=== PATIENT | female | born 1940 | race Two or more races ===

== ENCOUNTER 2018-03-16 09:37 | Inpatient (IN) | payer MEDICARE ==
[2018-03-15 13:19] LABS: BASOPHILS % (AUTO) 0.3 % (0-1); EOSINOPHILS % (AUTO) 0.4 % (0-6); HEMATOCRIT 41.3 % (35.0-45.0); HEMOGLOBIN 14.1 g/dl (12.0-16.0); LYMPHOCYTES # (AUTO) 2.5 X10'3 (1.1-4.8); LYMPHOCYTES % (AUTO) 34.5 % (21-51); MEAN CORPUSCULAR HEMOGLOBIN 31.5 PG (27.0-31.0); MEAN CORPUSCULAR HGB CONC 34.1 % (33.0-36.5); MEAN CORPUSCULAR VOLUME 92.5 FL (78-98); MEAN PLATELET VOLUME 8.4 FL (7.4-10.4); MONOCYTES # (AUTO) 0.6 X10'3 (0-0.9); MONOCYTES % (AUTO) 7.9 % (2-12); NEUTROPHILS # (AUTO) 4.2 X10'3 (1.8-7.7); NEUTROPHILS % (AUTO) 56.9 % (42-75); PLATELET COUNT 176 X10'3 (140-440); RED BLOOD COUNT 4.47 X10'6 (4.20-5.60); RED CELL DISTRIBUTION WIDTH 12.9 % (11.5-14.5); WHITE BLOOD COUNT 7.3 X10'3 (4.5-11.0)
[2018-03-15 13:30] LABS: ALBUMIN 2.9 G/DL (3.4-5.0); ANION GAP 7 (8-16); BLOOD UREA NITROGEN 14 MG/DL (7-18); BUN/CREATININE RATIO 13.9 (6.6-38.0); CALCIUM 9.9 MG/DL (8.5-10.1); CHLORIDE 105 MMOL/L (99-107); CREATININE 1.01 MG/DL (0.40-0.90); GLUCOSE 112 MG/DL (70-104); POTASSIUM 3.7 MMOL/L (3.5-5.1); SODIUM 141 MMOL/L (135-145); TOTAL CARBON DIOXIDE 29.4 MMOL/L (24-32); eGFR 53 ML/MIN
[2018-03-15 13:31] LABS: PARTIAL THROMBOPLASTIN TIME 26 SECONDS (22-32); PROTHROMBIN TIME 10.2 SECONDS (9.0-12.0)
[~2018-03-16] VITALS: Ht 162.6 cm; Wt 77.2 kg
[2018-03-16] VITALS (19 sets, daily range): BP systolic 114–184; BP diastolic 49–107
[2018-03-16] MEDS ORDERED: diphenhydrAMINE 25mg capsule PO PRN (09:55)
[2018-03-16] MEDS ORDERED: LORazepam 0.5 MG tablet PO PRN (09:55)
[2018-03-16] MEDS ORDERED: ACET-2119 PO (10:11)
[2018-03-16] MEDS ORDERED: DOCU-28 PO (10:11)
[2018-03-16] MEDS ORDERED: ATOR40TA3 PO (10:11)
[2018-03-16] MEDS ORDERED: OMEP40CA37 PO (10:11)
[2018-03-16] MEDS ORDERED: METO-467 PO (10:11)
[2018-03-16] MEDS ORDERED: APIX5TAB3 PO (10:11)
[2018-03-16] MEDS ORDERED: LIDOcaine/PRILOcaine 5gm cream TP ONE (11:45)
[2018-03-16] MEDS: normal saline 1000ml 1,000 ML IV SCH ×2 (11:57→23:00)
[2018-03-16] MEDS ORDERED: fentaNYL/PF 50MCG/1 ML 2ML syringe ONE (12:58)
[2018-03-16] MEDS ORDERED: nitroGLYCERIN-Tridil 50MG/D5W 250 ML IV ONE (12:58)
[2018-03-16] MEDS ORDERED: heparin 1,000unit/ml 10ml vial 10 ML ONE (12:58)
[2018-03-16] MEDS ORDERED: midazolam 2 mg/2 ml injection ONE (12:58)
[2018-03-16] MEDS ORDERED: lidocaine 1%/epinephrine 1:100,000 injection 50ml vial ONE (12:58)
[2018-03-16] MEDS ORDERED: iohexol 350 MG/ML 50ML vial IV ONE ×2 (12:59→13:56)
[2018-03-16] MEDS ORDERED: iohexol 350MG/ML 100ml bottle IV ONE (12:59)
[2018-03-16] MEDS ORDERED: verapamil 2.5 mg/ml inj IV ONE (13:29)
[2018-03-16] MEDS ORDERED: LIDOcaine 1% 30ml preserv. free vial ONE (13:35)
[2018-03-16] MEDS: acetaminophen 325mg tablet PO PRN (16:39)
[2018-03-16] MEDS ORDERED: potassium Cl 20 mEq SR tablet PO STA (16:55)
[2018-03-16] MEDS ORDERED: diltiazem 5mg/ml 5ml inj. IV ONE (16:55)
[2018-03-16] MEDS: magnesium 1gm/100ml D5W IVPB 100 ML IV SCH ×2 (17:21→19:27)
[2018-03-16] MEDS: atorvastatin 20mg tablet PO SCH (20:47)
[2018-03-16] MEDS: metoprolol tartrate 50mg tablet PO SCH (20:47)
[2018-03-16] MEDS ORDERED: potassium Cl 20 mEq SR tablet PO PRN ×2 (22:20→22:25)
[2018-03-16] MEDS ORDERED: magnesium Cl slow-release 64mg tablet PO PRN ×2 (22:20→22:35)
[2018-03-16] MEDS ORDERED: potassium Cl 40MEQ/NS 500ml 500 ML IV PRN ×2 (22:20)
[2018-03-16] MEDS ORDERED: magnesium 1gm/100ml D5W IVPB 100 ML IV PRN (22:20)
[2018-03-16] MEDS ORDERED: magnesium 4gm in 100ml NS 100 ML IV PRN (22:20)
[2018-03-16] MEDS: amiodarone 200mg tablet PO SCH (22:59)
[2018-03-17] VITALS (24 sets, daily range): BP systolic 105–168; BP diastolic 55–106
[2018-03-17 06:05] LABS: ALANINE AMINOTRANSFERASE 16 U/L (12-78); ALBUMIN 2.5 G/DL (3.4-5.0); ALBUMIN/GLOBULIN RATIO 0.7 (1.1-1.5); ALKALINE PHOSPHATASE 64 IU/L (46-116); ANION GAP 7 (8-16); ASPARTATE AMINO TRANSFERASE 17 U/L (10-37); BILIRUBIN,TOTAL 1.1 MG/DL (0.1-1.0); BLOOD UREA NITROGEN 12 MG/DL (7-18); BUN/CREATININE RATIO 14.1 (6.6-38.0); CALCIUM 8.7 MG/DL (8.5-10.1); CHLORIDE 104 MMOL/L (99-107); CREATININE 0.85 MG/DL (0.40-0.90); GLUCOSE 100 MG/DL (70-104); POTASSIUM 4.3 MMOL/L (3.5-5.1); SODIUM 138 MMOL/L (135-145); TOTAL CARBON DIOXIDE 26.6 MMOL/L (24-32); TOTAL PROTEIN 6.2 G/DL (6.4-8.2); eGFR 65 ML/MIN
[2018-03-17] MEDS ORDERED: fentaNYL/PF 50MCG/1 ML 2ML syringe IV ONE ×2 (06:35→06:39)
[2018-03-17] MEDS ORDERED: MIDAZolam 5mg/ml 2ml vial IV ONE (06:35)
[2018-03-17] MEDS ORDERED: AMIO400T5 PO (07:39)
[2018-03-17] MEDS ORDERED: iohexol 350MG/ML 100ml bottle IV ONE (07:51)
[2018-03-17] MEDS ORDERED: amiodarone 200mg tablet PO SCH ×2 (08:00→20:00)
[2018-03-17] MEDS: amiodarone 200mg tablet PO SCH (10:23)
[2018-03-17] MEDS: docusate sod 100mg capsule PO SCH (10:23)
[2018-03-17] MEDS: pantoprazole 40mg Tablet.DR PO SCH (10:23)
[2018-03-17] MEDS: metoprolol tartrate 50mg tablet PO SCH (10:27)
[2018-03-17] MEDS ORDERED: ondansetron/PF 4mg/2ml inj IV PRN (11:35)
[2018-03-17] MEDS ORDERED: ondansetron/PF 4mg/2ml inj ONE (11:35)
[2018-03-17] MEDS: acetaminophen 325mg tablet PO PRN (17:17)
[2018-03-17] MEDS ORDERED: metoprolol tartrate 25mg tablet PO SCH (20:00)
[2018-03-17] MEDS: atorvastatin 20mg tablet PO SCH (20:03)
[2018-03-18] VITALS: BP 133/69
[2018-03-18 03:00] VITALS: BP 135/75
[2018-03-18 06:08] LABS: ALBUMIN 2.5 G/DL (3.4-5.0); ANION GAP 6 (8-16); BLOOD UREA NITROGEN 9 MG/DL (7-18); BUN/CREATININE RATIO 10.6 (6.6-38.0); CALCIUM 9.1 MG/DL (8.5-10.1); CHLORIDE 105 MMOL/L (99-107); CREATININE 0.85 MG/DL (0.40-0.90); GLUCOSE 95 MG/DL (70-104); MAGNESIUM 1.8 MG/DL (1.5-2.4); POTASSIUM 3.8 MMOL/L (3.5-5.1); SODIUM 139 MMOL/L (135-145); TOTAL CARBON DIOXIDE 27.7 MMOL/L (24-32); eGFR 65 ML/MIN
[2018-03-18] MEDS ORDERED: AMIO200T40 PO (07:57)
[2018-03-18] MEDS ORDERED: METO-467 PO (07:57)
[2018-03-18] MEDS ORDERED: amiodarone 200mg tablet PO SCH (08:00)
[2018-03-18] MEDS ORDERED: metoprolol tartrate 25mg tablet PO SCH (08:05)
[2018-03-18] MEDS ORDERED: apixaban 5mg tablet PO SCH (08:05)
[2018-03-18] MEDS ORDERED: magnesium hydroxide 30ml (MOM) UD suspension PO ONE (08:40)
[2018-03-18] MEDS: docusate sod 100mg capsule PO SCH (09:00)
[2018-03-18] MEDS: pantoprazole 40mg Tablet.DR PO SCH (09:00)
== END 2018-03-18 13:38 | disposition home or self-care (01) | DRG 287 ==
LOC: SSTAY O 09:37 → PCU 3S 20:32
PROVIDERS: ADMIT Internal Medicine Cardiovascular Disease; ATTEND Internal Medicine Cardiovascular Disease
PROC: 4A023N7 Measurement of Cardiac Sampling and Pressure, Left Heart, Percutaneous Approach (ICD-10-PCS; principal; 2018-03-16)
PROC: B2111ZZ Fluoroscopy of Multiple Coronary Arteries using Low Osmolar Contrast (ICD-10-PCS; 2018-03-16)
PROC: B2151ZZ Fluoroscopy of Left Heart using Low Osmolar Contrast (ICD-10-PCS; 2018-03-16)
PROC: B246ZZ4 Ultrasonography of Right and Left Heart, Transesophageal (ICD-10-PCS; 2018-03-17)
PROC: B32T1ZZ Computerized Tomography (CT Scan) of Left Pulmonary Artery using Low Osmolar Contrast (ICD-10-PCS; 2018-03-17)
PROC: B3201ZZ Computerized Tomography (CT Scan) of Thoracic Aorta using Low Osmolar Contrast (ICD-10-PCS; 2018-03-17)
PROC: B32S1ZZ Computerized Tomography (CT Scan) of Right Pulmonary Artery using Low Osmolar Contrast (ICD-10-PCS; 2018-03-17)
DX: I25.10 Atherosclerotic heart disease of native coronary artery without angina pectoris (principal); I25.3 Aneurysm of heart; I47.2 Ventricular tachycardia; E78.5 Hyperlipidemia, unspecified; I10 Essential (primary) hypertension; I48.0 Paroxysmal atrial fibrillation; Z79.01 Long term (current) use of anticoagulants; Z79.899 Other long term (current) drug therapy; Z88.6 Allergy status to analgesic agent
CPT/HCPCS: 36415; 71275; 80048; 80053; 83735; 85025; 85610; 85730; 93005; 93306; 93312; 93458; 99152; 99153; A6257; A6449; C1750; C1769; J1644; J2250; J2405; J3010; J3490; J7030; Q0163; Q9967

== ENCOUNTER 2018-07-20 08:55 | Day surgery (SDC) | payer MEDICARE ==
[2018-07-19 11:15] LABS: BASOPHILS % (AUTO) 0.4 % (0-1); EOSINOPHILS % (AUTO) 0.2 % (0-6); HEMATOCRIT 37.9 % (35.0-45.0); HEMOGLOBIN 12.6 g/dl (12.0-16.0); LYMPHOCYTES # (AUTO) 1.8 X10'3 (1.1-4.8); LYMPHOCYTES % (AUTO) 37.1 % (21-51); MEAN CORPUSCULAR HEMOGLOBIN 30.2 PG (27.0-31.0); MEAN CORPUSCULAR HGB CONC 33.3 % (33.0-36.5); MEAN CORPUSCULAR VOLUME 90.8 FL (78-98); MEAN PLATELET VOLUME 8.8 FL (7.4-10.4); MONOCYTES # (AUTO) 0.6 X10'3 (0-0.9); MONOCYTES % (AUTO) 11.5 % (2-12); NEUTROPHILS # (AUTO) 2.5 X10'3 (1.8-7.7); NEUTROPHILS % (AUTO) 50.8 % (42-75); PLATELET COUNT 196 X10'3 (140-440); RED BLOOD COUNT 4.18 X10'6 (4.20-5.60); RED CELL DISTRIBUTION WIDTH 13.4 % (11.5-14.5)
[2018-07-19 11:29] LABS: ALBUMIN 2.7 G/DL (3.4-5.0); ANION GAP 8 (8-16); BLOOD UREA NITROGEN 17 MG/DL (7-18); BUN/CREATININE RATIO 18.9 (6.6-38.0); CALCIUM 9.4 MG/DL (8.5-10.1); CHLORIDE 105 MMOL/L (99-107); GLUCOSE 135 MG/DL (70-104); POTASSIUM 3.6 MMOL/L (3.5-5.1); SODIUM 141 MMOL/L (135-145); TOTAL CARBON DIOXIDE 28.3 MMOL/L (24-32); eGFR 60 ML/MIN
[2018-07-19 11:34] LABS: PARTIAL THROMBOPLASTIN TIME 25 SECONDS (22-32); PROTHROMBIN TIME 10.2 SECONDS (9.0-12.0)
[~2018-07-20] VITALS: Ht 162.6 cm; Wt 70.3 kg
[2018-07-20] VITALS (14 sets, daily range): BP systolic 114–171; BP diastolic 61–91
[~2018-07-20 08:55] MED LIST: ACET-2119 PO; AMIO200T40 PO; APIX5TAB3 PO; ATOR40TA3 PO; DOCU-28 PO; METO-467 PO; OMEP40CA37 PO
[2018-07-20] MEDS ORDERED: diphenhydrAMINE 25mg capsule PO PRN (09:25)
[2018-07-20] MEDS ORDERED: LORazepam 0.5 MG tablet PO PRN (09:25)
[2018-07-20] MEDS ORDERED: POTA10TA19 PO (10:05)
[2018-07-20] MEDS ORDERED: SOTA80TA73 PO (10:05)
[2018-07-20] MEDS ORDERED: FURO-149 PO (10:05)
[2018-07-20] MEDS ORDERED: LIDOcaine 1% (10mg/ml) 2ml vial ONE (10:13)
[2018-07-20] MEDS: normal saline 1000ml 1,000 ML IV SCH ×2 (10:16→19:25)
[2018-07-20] MEDS ORDERED: LIDOcaine 1% (10mg/ml)w/preservative injection 20ml MDV ONE (13:37)
[2018-07-20] MEDS ORDERED: iohexol 350 MG/ML 50ML vial IV ONE (13:37)
[2018-07-20] MEDS ORDERED: nitroGLYCERIN-Tridil 50MG/D5W 250 ML IV ONE (13:37)
[2018-07-20] MEDS ORDERED: heparin 1,000unit/ml 10ml vial 10 ML ONE (13:37)
[2018-07-20] MEDS ORDERED: iohexol 350MG/ML 100ml bottle IV ONE (13:37)
[2018-07-20] MEDS ORDERED: midazolam 2 mg/2 ml injection ONE (14:04)
[2018-07-20] MEDS ORDERED: iohexol 350 MG/1 ML 200ml bottle ONE (14:26)
[2018-07-20] MEDS ORDERED: heparin 25,000 UNIT/250ml bag 250 ML IV ONE (14:26)
[2018-07-20] MEDS ORDERED: clopidogrel 300mg tablet ONE (15:09)
[2018-07-20] MEDS ORDERED: magnesium hydroxide 30ml (MOM) UD suspension PO PRN (16:30)
[2018-07-20] MEDS ORDERED: cyclobenzaprine 10mg tablet PO PRN (16:30)
[2018-07-20] MEDS ORDERED: OXAZEpam 15mg capsule PO PRN (16:30)
[2018-07-20] MEDS ORDERED: nitroGLYCERIN-Tridil 50MG/D5W 250 ML IV SCH (16:30)
[2018-07-20] MEDS ORDERED: HYDROcodone/acetaminophen 10/325mg tab PO PRN ×2 (16:30)
[2018-07-20] MEDS ORDERED: proCHLORperazine 10 MG/2 ml inj IV PRN (16:30)
[2018-07-20] MEDS: aspirin 81mg tab.chew PO SCH (18:01)
[2018-07-20] MEDS: acetaminophen 325mg tablet PO PRN ×2 (18:03→23:49)
[2018-07-20] MEDS: docusate sod 100mg capsule PO SCH (20:00)
[2018-07-21] VITALS (7 sets, daily range): BP systolic 97–129; BP diastolic 59–76
[2018-07-21 06:10] LABS: ALANINE AMINOTRANSFERASE 13 U/L (12-78); ALBUMIN 2.5 G/DL (3.4-5.0); ALBUMIN/GLOBULIN RATIO 0.8 (1.1-1.5); ALKALINE PHOSPHATASE 70 IU/L (46-116); ANION GAP 9 (8-16); ASPARTATE AMINO TRANSFERASE 17 U/L (10-37); BILIRUBIN,TOTAL 0.8 MG/DL (0.1-1.0); BLOOD UREA NITROGEN 12 MG/DL (7-18); BUN/CREATININE RATIO 15.4 (6.6-38.0); CHLORIDE 104 MMOL/L (99-107); CREATININE 0.78 MG/DL (0.40-0.90); GLUCOSE 124 MG/DL (70-104); POTASSIUM 3.4 MMOL/L (3.5-5.1); SODIUM 138 MMOL/L (135-145); TOTAL CARBON DIOXIDE 24.6 MMOL/L (24-32); TOTAL PROTEIN 5.7 G/DL (6.4-8.2); eGFR 71 ML/MIN
[2018-07-21 06:12] LABS: BASOPHILS % (AUTO) 0.4 % (0-1); EOSINOPHILS % (AUTO) 0.6 % (0-6); HEMATOCRIT 34.6 % (35.0-45.0); HEMOGLOBIN 11.6 g/dl (12.0-16.0); LYMPHOCYTES # (AUTO) 2.2 X10'3 (1.1-4.8); LYMPHOCYTES % (AUTO) 29.7 % (21-51); MEAN CORPUSCULAR HEMOGLOBIN 30.4 PG (27.0-31.0); MEAN CORPUSCULAR HGB CONC 33.6 % (33.0-36.5); MEAN CORPUSCULAR VOLUME 90.6 FL (78-98); MEAN PLATELET VOLUME 8.9 FL (7.4-10.4); MONOCYTES # (AUTO) 0.8 X10'3 (0-0.9); MONOCYTES % (AUTO) 11.4 % (2-12); NEUTROPHILS # (AUTO) 4.3 X10'3 (1.8-7.7); NEUTROPHILS % (AUTO) 57.9 % (42-75); PLATELET COUNT 182 X10'3 (140-440); RED BLOOD COUNT 3.82 X10'6 (4.20-5.60); RED CELL DISTRIBUTION WIDTH 13.2 % (11.5-14.5); WHITE BLOOD COUNT 7.4 X10'3 (4.5-11.0)
[2018-07-21] MEDS ORDERED: CLOP75TA35 PO (07:44)
[2018-07-21] MEDS ORDERED: APIX5TAB3 PO (07:44)
[2018-07-21] MEDS ORDERED: ASPI-611 PO (07:45)
[2018-07-21] MEDS ORDERED: acetaminophen 325mg tablet PO SCH (08:00)
[2018-07-21] MEDS ORDERED: potassium Cl 20 mEq SR tablet PO SCH (08:00)
[2018-07-21] MEDS ORDERED: clopidogrel 75mg tablet PO SCH (08:00)
[2018-07-21] MEDS ORDERED: sotalol 80mg tablet PO SCH (08:00)
[2018-07-21] MEDS ORDERED: atorvastatin 20mg tablet PO SCH (08:00)
[2018-07-21] MEDS ORDERED: docusate sod 100mg capsule PO SCH (08:00)
[2018-07-21] MEDS ORDERED: pantoprazole 40mg Tablet.DR PO SCH (08:00)
[2018-07-21] MEDS ORDERED: furosemide 40mg tablet PO SCH (08:00)
[2018-07-21] MEDS: aspirin 81mg tab.chew PO SCH (08:07)
[2018-07-21] MEDS: docusate sod 100mg capsule PO SCH (08:08)
[2018-07-21] MEDS ORDERED: non-formulary drug (Atorvastatin Calcium (Lipitor) 1 TABLET) PO SCH (21:00)
[2018-07-22] MEDS ORDERED: apixaban 5mg tablet PO SCH (08:00)
== END 2018-07-21 11:05 | disposition home or self-care (01) ==
LOC: SSTAY O 08:55 → MED 3N 19:19 → SSTAY O 07-21 11:05
PROVIDERS: ATTEND Internal Medicine Cardiovascular Disease
DX: I25.708 Atherosclerosis of coronary artery bypass graft(s), unspecified, with other forms of angina pectoris (principal); I10 Essential (primary) hypertension; E78.5 Hyperlipidemia, unspecified; I25.10 Atherosclerotic heart disease of native coronary artery without angina pectoris; I48.0 Paroxysmal atrial fibrillation; I25.3 Aneurysm of heart; I25.2 Old myocardial infarction; E66.9 Obesity, unspecified; E03.9 Hypothyroidism, unspecified; I34.0 Nonrheumatic mitral (valve) insufficiency; I48.3 Typical atrial flutter; K21.9 Gastro-esophageal reflux disease without esophagitis; Z79.82 Long term (current) use of aspirin; Z88.5 Allergy status to narcotic agent; Z68.26 Body mass index [BMI] 26.0-26.9, adult; Z98.41 Cataract extraction status, right eye; Z98.42 Cataract extraction status, left eye; Z86.2 Personal history of diseases of the blood and blood-forming organs and certain disorders involving the immune mechanism; Z79.01 Long term (current) use of anticoagulants; Z79.891 Long term (current) use of opiate analgesic; Z98.890 Other specified postprocedural states; Z79.899 Other long term (current) drug therapy; Z82.49 Family history of ischemic heart disease and other diseases of the circulatory system; Z80.9 Family history of malignant neoplasm, unspecified
CPT/HCPCS: 36415; 80048; 80053; 85025; 85347; 85610; 85730; 93005; 93458; 99152; 99153; A6257; C1760; C1874; C9600; C9601; J1644; J2001; J2250; J3490; J7030; Q0163; Q9967; A4620; C1725; C1769; G0378

== ENCOUNTER 2018-12-05 14:42 | Emergency (ER) | payer MEDICARE ==
[~2018-12-05] VITALS: Ht 160 cm; Wt 69.1 kg
[~2018-12-05 14:42] MED LIST changes: -AMIO200T40 PO; -ATOR40TA3 PO; +ATOR40TA7 PO; +CLOP75TA35 PO; +FURO-149 PO; -METO-467 PO; +POTA10TA19 PO; +SOTA80TA73 PO
[2018-12-05 15:29] VITALS: BP 119/74
[2018-12-05 15:55] LABS: BASOPHILS # (AUTO) 0.1 X10'3 (0-0.2); BASOPHILS % (AUTO) 1.2 % (0-1); EOSINOPHILS % (AUTO) 0 % (0-6); HEMOGLOBIN 13.4 g/dl (12.0-16.0); LYMPHOCYTES % (AUTO) 36.8 % (21-51); MEAN CORPUSCULAR HEMOGLOBIN 30.4 PG (27.0-31.0); MEAN CORPUSCULAR HGB CONC 33.4 g/dL (33.0-36.5); MONOCYTES # (AUTO) 0.6 X10'3 (0-0.9); MONOCYTES % (AUTO) 10.5 % (2-12); NEUTROPHILS # (AUTO) 2.8 X10'3 (1.8-7.7); NEUTROPHILS % (AUTO) 51.5 % (42-75); PLATELET COUNT 227 X10'3 (140-440); RED CELL DISTRIBUTION WIDTH 12.8 % (11.5-14.5); WHITE BLOOD COUNT 5.5 X10'3 (4.5-11.0)
[2018-12-05 16:08] LABS: ALANINE AMINOTRANSFERASE 21 U/L (12-78); ALBUMIN 2.8 G/DL (3.4-5.0); ALBUMIN/GLOBULIN RATIO 0.8 (1.1-1.5); ALKALINE PHOSPHATASE 93 IU/L (46-116); ANION GAP 4 (8-16); ASPARTATE AMINO TRANSFERASE 18 U/L (10-37); BILIRUBIN,TOTAL 0.9 MG/DL (0.1-1.0); BLOOD UREA NITROGEN 13 MG/DL (7-18); BUN/CREATININE RATIO 12.3 (6.6-38.0); CALCIUM 9.1 MG/DL (8.5-10.1); CHLORIDE 106 MMOL/L (99-107); CREATININE 1.06 MG/DL (0.40-0.90); GLUCOSE 101 MG/DL (70-104); SODIUM 141 MMOL/L (135-145); TOTAL CARBON DIOXIDE 31.4 MMOL/L (24-32); TOTAL PROTEIN 6.5 G/DL (6.4-8.2); eGFR 50 ML/MIN
== END 2018-12-05 17:03 | disposition home or self-care (01) ==
LOC: ER 14:42
DX: I50.9 Heart failure, unspecified (principal); I25.10 Atherosclerotic heart disease of native coronary artery without angina pectoris; Z98.61 Coronary angioplasty status; Z98.890 Other specified postprocedural states; Z88.5 Allergy status to narcotic agent; Z79.899 Other long term (current) drug therapy
CPT/HCPCS: 36415; 71046; 80053; 83880; 84484; 85025; 93005; 99284

== ENCOUNTER 2020-05-07 07:41 | Outpatient (CLI) | payer MEDICARE ==
[2020-05-07] VITALS (11 sets, daily range): BP systolic 109–155; BP diastolic 66–94
[~2020-05-07] VITALS: Ht 162.6 cm; Wt 71.0 kg
[~2020-05-07 07:41] MED LIST changes: +OMEP40CA13 PO; -OMEP40CA37 PO
[2020-05-07] MEDS ORDERED: aminophylline 250mg/10ml inj. IV PRN (09:05)
[2020-05-07] MEDS ORDERED: nitroGLYCERIN 0.4mg SUBLingual tab SL PRN (09:05)
[2020-05-07] MEDS ORDERED: regadenoson 0.4mg/5ml syringe IV PRN (09:05)
== END 2020-05-07 23:59 | disposition home or self-care (01) ==
LOC: RAD 07:41
PROVIDERS: ATTEND Internal Medicine Cardiovascular Disease
DX: R94.31 Abnormal electrocardiogram [ECG] [EKG] (principal); R06.02 Shortness of breath
CPT/HCPCS: 76937; 78452; 93017; A9500; J0280; J2785

== ENCOUNTER 2021-07-17 12:04 | Outpatient (CLI) | payer MEDICARE ==
[~2021-07-17 12:04] MED LIST changes: +CLOP75TA34 PO; -CLOP75TA35 PO; -OMEP40CA13 PO; +OMEP40CA21 PO; +POTA-192 PO; -POTA10TA19 PO
== END 2021-07-17 23:59 | disposition home or self-care (01) ==
LOC: 64 CT 12:04
PROVIDERS: ATTEND Family Medicine
DX: S00.93XA Contusion of unspecified part of head, initial encounter (principal); G93.89 Other specified disorders of brain; X58.XXXA Exposure to other specified factors, initial encounter; Y93.89 Activity, other specified; Y92.89 Other specified places as the place of occurrence of the external cause; Y99.8 Other external cause status
CPT/HCPCS: 70450

== ENCOUNTER 2023-01-09 23:25 | Emergency (ER) | payer MEDICARE ==
[~2023-01-09] VITALS: Ht 162.6 cm; Wt 69.1 kg
[2023-01-10] MEDS ORDERED: acetaminophen 325mg tablet PO ONE (00:50)
[2023-01-10] MEDS ORDERED: TETanus/Pertussis (Acell)/Diphther VAC/PF (Tdap-Adult) 0.5ml syringe IMVAC ONE (01:25)
[2023-01-10 04:18] VITALS: BP 151/74
== END 2023-01-10 04:19 | disposition home or self-care (01) ==
LOC: ER 23:26
DX: S01.112A Laceration without foreign body of left eyelid and periocular area, initial encounter (principal); S09.90XA Unspecified injury of head, initial encounter; S60.222A Contusion of left hand, initial encounter; S16.1XXA Strain of muscle, fascia and tendon at neck level, initial encounter; M79.652 Pain in left thigh; X58.XXXA Exposure to other specified factors, initial encounter; Y93.89 Activity, other specified; Y92.89 Other specified places as the place of occurrence of the external cause; Y99.8 Other external cause status
CPT/HCPCS: 70450; 70486; 72125; 73110; 73502; 73552; 73564; 73590; 74177; 90471; 90715; 99285